=== PATIENT | male | born 1970 | race African-American/Black ===

== ENCOUNTER → 2021-09-29 02:35 | Outpatient (CLI) | payer OTHER, SELFPAY ==
[2021-09-29 20:05] LABS: SARS-CoV-2 RNA PCR Negative
== END ==
PROVIDERS: PCP Registered Nurse; Visit Provider Internal Medicine Critical Care Medicine
DX: R68.89 Other general symptoms and signs (principal); Z20.822 Contact with and (suspected) exposure to COVID-19
CPT/HCPCS: C9803; U0003; U0005

== ENCOUNTER 2021-10-01 08:41 | Outpatient (CLI) | payer OTHER, SELFPAY ==
--- NOTE | 2021-10-20 19:05 | P.SLEEP_ITS ---
Sleep Study Date of Study: 10/01/21 Ordering Provider: Trista Jordan, SPACE CONTROL SUPERVISOR Interpreting Physician: Belem Morrissey MD Sleep Study Type: Split Polysomnogram Height: 1.75 m Weight: 136.985 kg Body Mass Index: 44.6 Neck Circumference (inches): 20 [place]: 9 Reason for Sleep Study BRUCE diagnosed 12 years ago, uses CPAP, referred by his metal coater operator for re- evaluation Sleep History Zion Stone is a 51 year old man with an old CPAP machine, at least 10 years old. He has multiple medical issues including chronic diastolic heart failure, stroke, diastolic dysfunction, hypertension and lower extremity edema. He also has stage 3 chronic kidney disease. 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 Family History Family History (Updated 10/20/21 @ 19:22 by Belem Morrissey MD) Mother Diabetes mellitus Heart disease Cerebrovascular accident Hypertension Father Carcinoma of colon Social History Social History (Updated 10/20/21 @ 19:24 by Belem Morrissey MD) Smoking status: Never smoker Alcohol intake: never Substance use: never Occupation/Education: occupation Sleep Procedure This test was performed using the Georgina Goodman multiple channel system including EOG, EEG, submental EMG, EKG, nasal and oral airflow using thermistors and nasal pressure sensors, chest and abdominal belts for body position data, and pulse oximetry. Video monitoring was also performed. The study was scored using CMS guidelines. After the baseline portion the patient met criteria for a titration. Sleep Architecture Baseline Titration Respiratory Analysis Baseline Titration Arousals Baseline Titration Periodic Limb Movements Baseline Titration Oximetry Data Baseline Titration EEG Profile EEG was unremarkable, no evidence of seizures. Assessment and Plan Data The data obtained during this sleep study is adequate for interpretation.
--- NOTE | 2021-10-21 16:28 | WPDSLEEPSTUD ---
Sleep Study Date of Study: 10/01/21 <Yasmin Simons, DO - Last Filed: 10/21/21 17:12> Ordering Provider: Trista Jordan, HULL MOLDER <Yasmin Simons, DO - Last Filed: 10/21/21 17:12> Interpreting Physician: Yasmin Simons DO <Yasmin Simons, DO - Last Filed: 10/21/21 17:12> Sleep Study Type: Split Polysomnogram <Yasmin Simons, DO - Last Filed: 10/21/21 17:12> Height: 1.75 m <Yasmin Simons DO - Last Filed: 10/21/21 17:12> Weight: 136.985 kg <Yasmin Simons DO - Last Filed: 10/21/21 17:12> Body Mass Index: 44.6 <Yasmin Simons DO - Last Filed: 10/21/21 17:12> Neck Circumference (inches): 20 <Yasmin Simons DO - Last Filed: 10/21/21 17:12> Arion: 9 <Yasmin Simons DO - Last Filed: 10/21/21 17:12> Reason for Sleep Study History of known BRUCE. Machine is older than 10 years old. Recent stroke on 08/14/2021. <Yasmin Simons DO - Last Filed: 10/21/21 17:12> Sleep History The patient is a 51-year-old male with hypertension, diastolic heart failure, prediabetes, stage 3a CKD, history of multiple strokes, lower extremity edema and known BRUCE on PAP that had a sleep study ordered due to needing new PAP supplies and recent stroke. The patient was hospitalized from 08/14/21-08/20/21 due to hypertensive urgency and an acute stroke (right centrum semiovale). the patient denies awakening from sleep short of breath. He denies awakening at night with heartburn, belching or cough. He frequently snores loud enough that others complain. He rarely has trouble sleeping when he has a cold. He denies waking up gasping for air throughout the night. He frequently has breathing problems at night observed by others. He denies sweating excessively at night. He denies heart palpitations or irregular heartbeats during the night. He occasionally falls asleep during the day but never while driving. He rarely has trouble at work due to sleepiness. He denies sleep paralysis, cataplexy and hypnagogic / hypnopompic hallucinations. He denies having nightmares. He denies having thoughts racing through his mind. He denies feeling sad, depressed or anxious. He denies noticing parts of his body jerk or kicking throughout the night. He denies having crawling and aching feelings in his legs as well as leg pain during the night. He denies grinding his teeth during sleep and awakening with morning jaw pain. He denies being bothered by pain during the day and being awakened by pain during the night. He occasionally wakes up feeling stiff in the morning. He goes to bed at 11:00 p.m. on weekdays and midnight on the weekends. It takes him 20-30 minutes to fall asleep. He wakes up twice per night. When he awakens, he will lay there until he falls back asleep. He usually falls asleep within 5-10 minutes. He awakens at 7:30 a.m. on weekdays and 8:00 a.m. on the weekends. He typically gets 5-1/2 hours of sleep per night. He will stay in bed for 15 minutes after awakening in the morning. He currently lives with his . He does do split shifts at work. He does not consume any caffeinated beverages within 2 hours of bedtime. He does not engage in physical exercise before bedtime. He will read and watch television before falling asleep. He does take naps in the afternoon or the evening but they are not refreshing. He has 2 caffeinated beverages per day. He denies tobacco, alcohol or recreational drug use. <Yasmin Simons DO - Last Filed: 10/21/21 17:12> [facility] Past Medical History Medical History: Medical History Acute CVA (cerebrovascular accident) Bilateral lower extremity edema Chronic diastolic heart failure Chronic kidney disease, stage 3 Diastolic dysfunction Gait instability Hypertension Obstructive sleep apnea Pre-diabetes Subcortical infarction Multiple old subcortical infa
[2021-10-21 16:51] VITALS: BMI 44.6
== END 2021-10-02 06:57 | disposition home or self-care (01) ==
LOC: ANHCSM 08:42
PROVIDERS: PCP Registered Nurse; Visit Provider Registered Nurse
DX: R53.83 Other fatigue (principal); R06.83 Snoring; G47.33 Obstructive sleep apnea (adult) (pediatric)
CPT/HCPCS: 95811

== ENCOUNTER → 2021-12-30 02:05 | Outpatient (CLI) | payer OTHER, SELFPAY ==
[2021-12-30 12:39] LABS: SARS-CoV-2 RNA PCR Negative
== END ==
PROVIDERS: PCP Registered Nurse; Visit Provider Internal Medicine Gastroenterology
DX: Z01.812 Encounter for preprocedural laboratory examination (principal); Z20.822 Contact with and (suspected) exposure to COVID-19
CPT/HCPCS: C9803; U0003; U0005

== ENCOUNTER 2022-01-02 02:14 | Day surgery (SDC) | payer OTHER, SELFPAY ==
[2021-11-13 13:22] VITALS: BMI 45.6
[2021-12-23 12:56] VITALS: BMI 45.6
--- NOTE | 2021-12-23 13:04 | PC.NURSE ---
SPOKE WITH PATIENT REGARDING HIS PROCEDURE ON 01/02/22 AND PLAVIX. HE WILL TAKE HIS LAST DOSE ON 12/28/21 AND WILL THEN HOLD IT UNTIL AFTER HIS PROCEDURE ON 01/02/22. PT VERBALIZES UNDERSTANDING.
--- NOTE | 2022-01-01 13:35 | WPDANESEPP ---
Anes - Eval Pre Procedure Procedure: Operation Date: 01/02/22 09:00 Proposed Procedures p Screening Colonoscopy - Vishal Medellin MD Date/Time: 01/01/22 13:35 Pre Op Diagnosis: family hx of colon ca, neoplasm screening Patient Data Age: 51 Gender: M Height: 1.75 m Weight: 140 kg Allergies Allergy/AdvReac Type Severity Reaction Status Date / Time No Known Allergies Allergy Unknown Verified 11/13/21 13:31 Home Medications Medication Instructions Recorded Confirmed Type amlodipine 10 mg PO DAILY 11/13/21 11/13/21 History atorvastatin 80 mg PO DAILY 11/13/21 11/13/21 History carvedilol 25 mg PO BID 11/13/21 11/13/21 History clopidogrel 75 mg PO DAILY 11/13/21 11/13/21 History valsartan-hydrochlorothiazide 1 tablet PO DAILY 12/23/21 12/23/21 History Patient hx anesthesia problems: none Family hx anesthesia problems: none Results Review: All pre-operative results and documents have been reviewed as part of the pre-operative evaluation. 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
[2022-01-02 08:00] VITALS: BP 141/93; PULSE 65; RESP 20; TEMP 36.3; O2SAT 100; BMI 44.6
[2022-01-02] MEDS: LACTATED RINGERS 1,000 ML 150 ML IV CONT (08:27)
--- NOTE | 2022-01-02 08:52 | WPDANESEFPP ---
Anes - Eval Final PreProcedure Day of Procedure 01/02/22 08:52 Patient weight: morbidly obese Heart: regular rate and rhythm Lungs: clear to auscultation Airway: Mallampati scale class II Neurological: alert and oriented Last oral intake: >/= 8 hours ASA classification: III Anesthetic plan: proceed Anesthesia type and monitoring: general LMA and standard monitoring Results Review: All pre-operative results and documents have been reviewed as part of the pre-operative evaluation. Informed Consent: The patient's anesthetic plan and its attendant risks and benefits were discussed with the patient/family/POA. Questions were solicited and answers provided to the satisfaction of the patient/family/POA.
--- NOTE | 2022-01-02 08:56 | P.CONGI_ITS ---
Assessment and Plan Assessment and plan (1) Family history of colon cancer in father: Code(s): Z80.0 - Family history of malignant neoplasm of digestive organs Status: Acute Assessment and Plan: Patient's father had colon cancer. Plan is for surveillance colonoscopy now and at 5 year intervals in the future. (2) Obesity (BMI 30.0-34.9): Code(s): E66.9 - Obesity, unspecified Status: Acute GI Consult Note Consult date/time: 01/02/22 08:56 HPI: Zion Stone is a 51 year old male Presents for colonoscopy. Patient reports that his current weight appetite and bowel movements are normal. He d enies abdominal pain. He has had no bleeding. Family history is significant his father had colon cancer. Patient reports that he has a history of a CVA recently for which she is recovering with mild is weakness. Gait instability. 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 Family History Family History Mother Diabetes mellitus Heart disease Cerebrovascular accident Hypertension Father Carcinoma of colon Social History Social History Smoking status: Never smoker Alcohol intake: never Substance use: never Substance use type: does not use Living arrangements: with family Spiritual care concerns: No Meds Home Medications and Allergies Home Medications Medication Instructions Recorded Confirmed Type amlodipine 10 mg PO DAILY 11/13/21 11/13/21 History atorvastatin 80 mg PO DAILY 11/13/21 11/13/21 History carvedilol 25 mg PO BID 11/13/21 11/13/21 History clopidogrel 75 mg PO DAILY 11/13/21 11/13/21 History valsartan-hydrochlorothiazide 1 tablet PO DAILY 12/23/21 12/23/21 History Allergies Allergy/AdvReac Type Severity Reaction Status Date / Time No Known Allergies Allergy Unknown Verified 01/02/22 08:08 Vital Signs Vital Signs - 24 hr 01/02/22 08:00 Temperature 97.3 F L Pulse Rate 65 Respiratory Rate 20 Blood Pressure 141/93 H Pulse Oximetry 100 Exam Narrative: Physical exam reveals patient to be alert. Vital signs stable. HEENT exam is unremarkable. Patient is anicteric. Lungs are clear to auscultation and percussion. Heart is without murmur or extra sounds. Abdominal exam Is obese. bowel sounds are present soft nontender with no organomegaly. Digital external rectal exam is normal.
[2022-01-02 09:24] VITALS: BP 117/74; PULSE 76; RESP 21; O2SAT 100
[2022-01-02 09:34] VITALS: BP 123/82; PULSE 65; RESP 24; O2SAT 97
[2022-01-02 09:44] VITALS: BP 135/86; PULSE 68; RESP 23; O2SAT 99
== END 2022-01-02 10:08 | disposition home or self-care (01) ==
PROVIDERS: PCP Registered Nurse; Visit Provider Internal Medicine Gastroenterology
PROC: 0DJD8ZZ Inspection of Lower Intestinal Tract, Via Natural or Artificial Opening Endoscopic (ICD-10-PCS; CPT 45378; principal; 2022-01-02 09:00)
DX: Z12.11 Encounter for screening for malignant neoplasm of colon (principal); K64.8 Other hemorrhoids; Z80.0 Family history of malignant neoplasm of digestive organs; I13.0 Hypertensive heart and chronic kidney disease with heart failure and stage 1 through stage 4 chronic kidney disease, or unspecified chronic kidney disease; N18.30 Chronic kidney disease, stage 3 unspecified; I50.32 Chronic diastolic (congestive) heart failure; G47.33 Obstructive sleep apnea (adult) (pediatric); R73.03 Prediabetes; Z79.02 Long term (current) use of antithrombotics/antiplatelets; Z86.73 Personal history of transient ischemic attack (TIA), and cerebral infarction without residual deficits; E66.01 Morbid (severe) obesity due to excess calories; Z68.41 Body mass index [BMI] 40.0-44.9, adult
CPT/HCPCS: 45378; C9803; J2704; J7120; U0003; U0005